=== PATIENT | female | born 1950 | race Caucasian/White ===

== ENCOUNTER → 2016-07-05 | Outpatient (CLI) | payer MEDICARE, OTHER ==
[2016-07-05 09:36] LABS: HEMOGLOBIN 12.8 gm/dl (12.3-15.3); RED BLOOD COUNT 4.39 M/UL (4.00-5.10); WHITE BLOOD COUNT 6.1 K/UL (4.5-11.0)
[2016-07-05 09:59] LABS: BUN/CREATININE RATIO 20 (0-10)
== END ==
LOC: LAB 08:28
PROVIDERS: Nurse Practitioner
DX: E11.9 Type 2 diabetes mellitus without complications (principal); I10 Essential (primary) hypertension
CPT/HCPCS: 36415; 80053; 80061; 82043; 83036; 84436; 84443; 84480; 85025

== ENCOUNTER → 2016-09-14 | Outpatient (CLI) | payer MEDICARE, OTHER | LOC: LAB 08:33 | DX: E03.9 Hypothyroidism, unspecified (principal); E11.9 Type 2 diabetes mellitus without complications | CPT/HCPCS: 36415; 82947; 83036; 84436; 84443; 84480 ==